=== PATIENT | female | born 1960 | race African-American/Black ===

== ENCOUNTER 2016-07-08 21:13 | Inpatient (IN) | payer BC ==
[~2016-07-08] VITALS: Ht 170.2 cm; Wt 79.0 kg
[~2016-07-08 21:13] MED LIST: AMLO1CAP PO; ASPI81TA50 PO; FLUO10CA13 PO; GLIP10TA13 PO; HYDR12.53 PO; METF500T4 PO; OMEP20TA PO
--- NOTE | 2016-07-08 21:55 | PHYS DOC ---
General Stated Complaint: FLU LIKE SYMPTOMS Time Seen by MD: 21:26 Source: patient, family Problems: History of Present Illness Initial Comments Patient here with for generalized symptoms. Patient says that since earlier this week she's had headache, felt hot and cold, neck pain, nausea, vomiting, and generalized weakness. She said she did see her own doctor on Sunday for this. She says her doctor really didn't give her any information about what they thought was going on. Since that time, she just had persistent symptoms which don't seem to be improving and she came here tonight for recheck. As noted, says she's had some headache as well as some neck discomfort. She says she's felt hot and cold had some chills at home. She's had no runny nose or sore throat. There is no earache. She hasn't occasional nonproductive cough. There's no chest pain or shortness of breath. She had had some some nausea with intermittent vomiting. She did vomit once today without blood or bilious material. She has been able tolerate some by mouth fluids since that time. She has no abdominal pain. There is no change amount or bladder habits. There is no vaginal discharge or bleeding. She throat feels generalized weak this but denies any acute focal extremity or neurologic complaints. Patient's taken [id number] cold medicine for this home without help. She thought she was feeling better yesterday but then worse again today. She says her at home has had a cough as well. There is no other increasing or decreasing factors and there is nothing else done for this prior to arrival in the ED. Patient's past nuchal history is remarkable for mild bilateral mastectomy for left breast cancer. She apparently is on an experimental protocol with a Cytoxan infusion in April and periodic "vaccines , the last one which was several weeks ago. She also has high blood pressure diabetes. She doesn't check her sugar regularly. She says the last time she checked it she thinks it was in the 200s. She is a nonsmoker and nonuser of ethanol. She did use some Compazine and Zofran that she had at home for nausea, is not feeling nauseated physician evaluation. Allergies: Coded Allergies: Metronidazole HCl (Verified Allergy, Unknown, 03/12/13) exenatide (Verified Allergy, Unknown, 03/12/13) metronidazole (Verified Allergy, Unknown, 03/12/13) Past Medical History Medical History: cancer, diabetes, hypertension Surgical History: other Social History Smoker: non-smoker Alcohol: none Review of Systems All Other Systems: Reviewed and Negative Physical Exam General Appearance: WD/WN, no apparent distress Eyes: bilateral eye EOMI, bilateral eye PERRL, bilateral eye normal inspection Ear, Nose, Throat: normal ENT inspection, normal pharynx Neck: full range of motion, supple, normal inspection Respiratory: lungs clear, normal breath sounds, no respiratory distress Cardiovascular: regular rate, rhythm, no edema Gastrointestinal: non tender, soft, no organomegaly Back: no CVA tenderness, no vertebral tenderness Extremities: non-tender, normal inspection, no pedal edema Neurologic/Psychiatric: no motor/sensory deficits, alert, normal mood/affect, oriented x 3 Skin: normal color Lymphatic: no adenopathy Comments Generally this a well-developed well-nourished black female in no acute distress. Vitals are as noted. Pertinent findings on physical exam shows ears and throat to be grossly clear. Neck is supple without adenopathy or JVD. There' s no meningeal signs. I'm able passively move the head in all directions without difficulty. Chest is clear to auscultation bilaterally. Cardiac vascular exam shows regular rate and rhythm with out murmur. The abdomen is soft and nontender without masses or megaly. Is no perineal findings. Back shows no CVA tenderness. Externally show no rashes, cyanosis, or edema. Neurologic exam finds patient awake alert oriented and cooperative. She moves all extremity as well as spontaneously with good tone. Remainder of physical exam is clinically unremarkable. Orders, Labs, Meds Old charts note no prior ER visits within the current system. Labs show a stable CBC. There is no evidence of urine infection. She has evidence of renal insufficiency with a creatinine of 2.5 and abuse of 43. There is no old values for comparison. She has elevated liver function tests and an elevated bilirubin at 5. She has elevated amylase and lipase of 1300. Abdominal series films show uterine fibroid. There is no other acute changes per the emergency physician. Chest x-ray shows no acute changes per the emergency physician as well. 2330 Patient resting comfortable in the ED. Discussed with the patient and her the uncertain cause her symptoms. Influenza is negative, there does not appear to be any signs of urinary infection, and chest x-ray is clear. I'm concerned that given her elevated LFTs and elevated pancreas enzymes with elevated bilirubin without particular pain that we might be dealing with some sort of recurrent mass in the biliary tree or pancreatic region. She does have a history of cancer as previously described. I discussed these findings with the patient. She has no previous history of renal issues or pancreas issues. She does say that at one time she was told her liver function tests were elevated but doesn't know the reason for that. I discussed with the patient her that given this constellation of findings, I think will be important bring her to the hospital to see if we can feel not sure what's going on. Perhaps this is just an overwhelming viral issue, or perhaps this is simply related to medication she is receiving with her new protocol, but I'm also concerned about the possibility of some kind of mass lesion in the liver or pancreatic region. She and her do voice understanding of the need for admission and are agreeable to same. Her primary care physician does not admit. I discussed the case with Dr. Wellington of the hospitalist service to facilitate admission. He graciously agrees to accept the patient. I written initial holding orders to include medicines for pain, nausea, Tylenol for fever, as well as a CT abdomen and pelvis tonight and IV fluids. She is resting comfortably at this time awaiting transfer to the floor and hospitalist care. MAREK OCHOA MD Jul 08, 2016 21:55
[2016-07-08 22:56] LABS: BASO % 0 % (0-3); EOS % 0 % (0-3); HEMATOCRIT 33.8 % (36.0-47.0); HEMOGLOBIN 11.2 g/dL (12.0-15.5); LYMPH # 0.5 x10^3/uL (1.0-4.8); LYMPH % 7 % (24-48); MEAN CORPUSCULAR HEMOGLOBIN 29 pg (25-35); MEAN CORPUSCULAR HGB CONC 33 g/dL (31-37); MEAN CORPUSCULAR VOLUME 87 fL (79-100); MONO # 0.4 x10^3/uL (0.0-1.1); MONO % 6 % (0-9); NEUT # 6.1 x10^3uL (1.8-7.7); NEUT % 86 % (31-73); PLATELET COUNT 196 x10^3/uL (140-400); RED BLOOD COUNT 3.89 x10^6/uL (3.50-5.40); RED CELL DISTRIBUTION WIDTH 14.5 % (11.5-14.5)
[2016-07-08] MEDS ORDERED: IV NORMAL SALINE 1,000ML 1,000 ML IV ONE (23:00)
[2016-07-08 23:06] LABS: BILIRUBIN,URINE MOD (NEG); CLARITY,URINE CLEAR; COLOR,URINE AMBER; GLUCOSE,URINE >=1000 mg/dL (NEG)
[2016-07-08 23:07] LABS: AMORPHOUS SEDIMENT,UR PRESENT /HPF; BACTERIA,URINE FEW /HPF (0-FEW); NITRITE,URINE NEG (NEG); RBC,URINE OCC /HPF (0-2); SQUAMOUS EPITHELIAL CELL,UR OCC /LPF; UROBILINOGEN,URINE 4 mg/dL (0.2 mg/dL)
[2016-07-08 23:09] LABS: ALBUMIN 2.9 g/dL (3.4-5.0); ALBUMIN/GLOBULIN RATIO 0.6 (1.0-1.7); CALCIUM 9.4 mg/dL (8.5-10.1); CREATININE 2.5 mg/dL (0.6-1.0); GFR 24.1; POTASSIUM 4.5 mmol/L (3.5-5.1); TOTAL PROTEIN 7.6 g/dL (6.4-8.2)
[2016-07-08 23:19] LABS: INFLUENZA A PATIENT NEGATIVE (NEGATIVE); INFLUENZA B PATIENT NEGATIVE (NEGATIVE)
--- NOTE | 2016-07-09 00:36 | RAD ---
CT abdomen and pelvis without contrast Indication: Abdominal pain and weakness with nausea and vomiting. Axial imaging through the abdomen pelvis was performed without contrast. PQRS STATEMENT One or more of the following individualized dose reduction techniques were utilized for this study: 1.Automated exposure control. 2.Adjustment of the mA and/orkVaccording to patient size. 3.Use of iterative reconstruction technique. No prior studies are available for comparison. There is some minimal infiltrate or atelectasis in the right middle lobe and left lower lobe. The liver is unremarkable. The gallbladder appears to be contracted. Pancreatic evaluation is limited without intravenous contrast. No definite peripancreatic fluid collection is seen. No adrenal mass is identified. No renal calculi or hydronephrosis is identified. Aorta is not aneurysmal. The small and large bowel loops are normal caliber. The appendix appears unremarkable. There is a large calcified fibroid in the uterus. The bladder is unremarkable. Impression: No gross abnormality is identified on this noncontrast exam. Electronically signed by: Jorge Ridley MD (Jul 09, 2016 00:35:54)
[2016-07-09] MEDS ORDERED: ACETAMINOPHEN 500 MG TABLET PO PRN (01:15)
[2016-07-09] MEDS ORDERED: ONDANSETRON PF 4 MG/2 ML VIAL. IV PRN (01:15)
[2016-07-09] MEDS ORDERED: FENTANYL PF 100 MCG/2 ML VIAL. IV PRN (01:15)
[2016-07-09 01:28] VITALS: BP 103/64
[2016-07-09] MEDS ORDERED: DEXTROSE 50% 25 GM / 50ML DISP.SYRIN. IV PRN (01:30)
[2016-07-09] MEDS: IV NORMAL SALINE 1,000ML 1,000 ML IV SCH ×3 (01:59→19:20)
[2016-07-09] MEDS ORDERED: MULT-208 PO (02:32)
[2016-07-09] MEDS ORDERED: OMEP40CA5 PO (02:32)
[2016-07-09] MEDS ORDERED: AMLO1CAP6 PO (02:32)
[2016-07-09] MEDS ORDERED: SITA100T PO (02:32)
[2016-07-09 06:27] VITALS: BP 101/58
[2016-07-09 06:51] LABS: BASO % 0 % (0-3); EOS % 0 % (0-3); HEMATOCRIT 32.2 % (36.0-47.0); HEMOGLOBIN 10.7 g/dL (12.0-15.5); LYMPH # 0.5 x10^3/uL (1.0-4.8); LYMPH % 8 % (24-48); MEAN CORPUSCULAR HEMOGLOBIN 29 pg (25-35); MEAN CORPUSCULAR HGB CONC 33 g/dL (31-37); MEAN CORPUSCULAR VOLUME 87 fL (79-100); MONO # 0.4 x10^3/uL (0.0-1.1); MONO % 7 % (0-9); NEUT # 5.4 x10^3uL (1.8-7.7); NEUT % 85 % (31-73); PLATELET COUNT 173 x10^3/uL (140-400); RED BLOOD COUNT 3.69 x10^6/uL (3.50-5.40); RED CELL DISTRIBUTION WIDTH 14.6 % (11.5-14.5); WHITE BLOOD COUNT 6.4 x10^3/uL (4.0-11.0)
[2016-07-09 07:08] LABS: ALBUMIN 2.5 g/dL (3.4-5.0); ALBUMIN/GLOBULIN RATIO 0.6 (1.0-1.7); CALCIUM 8.8 mg/dL (8.5-10.1); GFR 37.6; MAGNESIUM 2.7 mg/dL (1.8-2.4); TOTAL BILIRUBIN 5.6 mg/dL (0.2-1.0); TOTAL PROTEIN 6.6 g/dL (6.4-8.2)
[2016-07-09 07:09] LABS: CREATININE 1.7 mg/dL (0.6-1.0); POTASSIUM 4.6 mmol/L (3.5-5.1)
[2016-07-09] MEDS: INSULIN ASPART 300 UNITS/3 ML INSULN.PEN SQ SCH ×4 (07:30→21:00)
--- NOTE | 2016-07-09 08:43 | RAD ---
ACUTE ABDOMEN SERIES Clinical Indication: Cough, chest and abdomen pain Comparison: None. Technique: Frontal view the chest and upright and supine frontal views of the abdomen are obtained. Findings: No focal consolidation, pleural effusion or pneumothorax is seen. Cardiomediastinal silhouette is within normal limits of size. No intra-abdominal free air or air-fluid levels are seen on the upright view. No dilated bowel loops are seen to suggest obstruction. No definite renal calculi are seen. A 3.7 cm calcified lesion is present within the left hemipelvis near the midline, likely a calcified uterine fibroid. Visualized osseous structures and overlying soft tissues of the chest and abdomen demonstrate no acute finding. Artifacts consistent with overlying breast tissue expanders present over both midlungs. IMPRESSION: No focal consolidation. Nonobstructive appearing bowel gas pattern.
[2016-07-09] MEDS ORDERED: HYDROCHLOROTHIAZIDE 12.5 MG CAPSULE PO PRN (09:00)
[2016-07-09] MEDS ORDERED: METFORMIN 500 MG TABLET. PO SCH (09:30)
[2016-07-09] MEDS ORDERED: GLIPIZIDE 10 MG TABLET PO SCH (09:30)
[2016-07-09] MEDS: ASPIRIN ENTERIC COATED 81 MG TABLET.DR. PO SCH (10:05)
[2016-07-09 11:15] VITALS: BP 109/67
[2016-07-09 13:40] LABS: CALCIUM 8.8 mg/dL (8.5-10.1); CREATININE 1.4 mg/dL (0.6-1.0); GFR 47.1; POTASSIUM 4.6 mmol/L (3.5-5.1)
[2016-07-09 15:59] VITALS: BP 98/57
[2016-07-09 19:45] VITALS: BP 134/75
[2016-07-09 22:43] VITALS: BP 111/68
--- NOTE | 2016-07-09 23:01 | PN ---
DATE: 07/09/2016 SUBJECTIVE: The patient is a 55-year-old -Niue[place] female patient who was admitted yesterday with generalized aches and pains, nausea, vomiting and generally feeling unwell. She was extensively evaluated in the Emergency Room, was found to have acute renal failure. Her creatinine has risen from 0.7 to 2.5, BUN from 15 to 43. Liver enzymes also have dramatically risen. She has what seemed to be almost cholestatic jaundice. She has also acute pancreatitis with markedly elevated amylase and lipase. She was started on IV fluid, pain medication and as she has no pain, she was started on a clear liquid diet; however, her appetite is poor. When I saw her this afternoon, she continued to complain of aches and pains as well as poor appetite, although she has no nausea, no vomiting, no fever, chills or rigors. PHYSICAL EXAMINATION: GENERAL: When I examined her, she looked well and was clearly in no apparent respiratory distress, pale, but no jaundice, cyanosis or thyromegaly. No jugular venous distention. No limb edema. VITAL SIGNS: Her heart rate was 97, blood pressure was 109/67, temperature was 97.8, respiratory rate was 20 and oxygen saturation was 97%. HEAD, EYES, EARS, NOSE AND THROAT: Showed normocephalic, atraumatic. NECK: Supple. HEART: Showed normal first and second heart sounds with no gallop, rub or murmur. CHEST: Clear to auscultation. No crepitation or rhonchi. ABDOMEN: Distended, soft, nontender. No guarding or rigidity. No organomegaly. All hernial orifices intact. Bowel sounds normal. NEUROLOGIC: She is awake, alert, responding appropriately. Cranial nerves are intact. She moves extremities without difficulty. She is mostly bed bound. Her intake over the last 24 hours was 560, output was 400. LABORATORY DATA: This morning showed a serum sodium 134, potassium 4.6, chloride 101, bicarbonate 19, anion gap of 14, glucose was 34, creatinine is 1.7. Estimated GFR was 37 mL per minute. Her glucose was 184, calcium was 8.8 and magnesium was 2.7. Total bilirubin is up to 5.6; however, AST is down to 180, ALT down to 171, alkaline phosphatase slightly down to 160. Total protein was 6.6, albumin was 2.5. Unfortunately, her amylase and lipase were not done. ASSESSMENT: This is a 55-year-old -[place]ue[place] female patient who was diagnosed with the breast cancer for which she underwent bilateral mastectomy. She is now on an experimental study. She received Cytoxan on 05/15/2016. A week later, she received the experimental vaccine and a week ago, she received second dose of experimental vaccine and she came yesterday, was found to have acute renal failure, acute pancreatitis and acute hepatitis with cholestatic picture. She obviously is known to have diabetes and hypertension. Unfortunately, she has been taking Tylenol as well as ibuprofen. On her home medication, she is on NEDRA inhibitor as well as hydrochlorothiazide and metformin. PLAN: My plan is to discontinue her hydrochlorothiazide, discontinue metformin as well as her sitagliptin and glipizide, continue with the insulin sliding scale for now. I will repeat her lab stat BMP and amylase and lipase, repeat all her labs tomorrow. We need obviously to contact her clinical ____ to discuss this finding. Fortunately, her kidney functions are turning the corner. Her creatinine is down from 2.5 to 1.7. Her liver enzymes are all trending down, although slowly. MOHINI HOGAN MD DR: RILEY/andre JOB#: [id number] / [id number]
[2016-07-10] MEDS: IV NORMAL SALINE 1,000ML 1,000 ML IV SCH ×3 (01:30→10:37)
--- NOTE | 2016-07-10 04:30 | HP ---
ADMIT DATE: 07/09/2016 HISTORY OF PRESENT ILLNESS: This is a 55-year-old -Israeli female patient, who came to the Emergency Room with generalized symptoms. Apparently, she was diagnosed with left breast cancer for which she underwent bilateral mastectomy. She was started on a clinical study, for which she received Cytoxan on 05/15/2016. She had also first cycle of the experimental vaccine a week later, probably around 05/22/2016 and she received her second cycle about a week ago and since then she has not felt well. She could not go to work on last Sunday as she was weak, tired, generalized arthralgias, and nausea and vomiting. She saw a nurse practitioner of her [facility] primary care physician on Sunday, apparently did not do anything. She saw her surgeon, who did the mastectomy on Sunday; however, no lab work done and she did have lab work done at [facility] a week ago, but she do not have a copy of that. However, we have copies of her lab works done on 05/15/2016 and at that time her kidney function was definitely normal. In fact, her BUN was 15, creatinine 0.7. She was evaluated in the Emergency Room and her lab work showed that her CBC was within normal range, although she is slightly anemic. However, her chemistry showed sodium was low at 130, potassium 4.5, chloride 95, bicarbonate 23, anion gap of 12, BUN is 43, creatinine 2.5, estimated GFR was 24 mL per minute. Her glucose was high at 273, calcium was 9.4. Her total bilirubin was high at 5. AST, ALT and alkaline phosphatase were extremely high. Her total protein was 7.6, albumin was 2.9. Her amylase was high at 209 and lipase was extremely high at 1300. Her urinalysis was unremarkable. Toxic screen was negative. Her influenza A and B were negative as well as rapid streptococcal antigen. She was admitted and was continued on IV fluid as well as insulin sliding scale. PAST MEDICAL HISTORY: Significant for type 2 diabetes mellitus, hypertension and breast cancer. PAST SURGICAL HISTORY: Significant for bilateral mastectomy, Port-A-Cath removal, 3 C-sections, tubal ligation and hospitalizations. ALLERGIES: She is allergic to BYETTA, VICTOZA, ERYTHROMYCIN, FLAGYL, and VICODIN. MEDICATIONS: She is currently on the following medications: She is on amlodipine/benazepril 5/20 mg once a day, aspirin 81 mg once a day, glipizide 10 mg once a day, hydrochlorothiazide 12.5 mg once a day, metformin 1000 mg twice a day, multivitamin 1 tablet once a day, omeprazole 40 mg once a day and sitagliptin phosphate 100 mg once a day. FAMILY HISTORY: She has 1 living brother, who is older and has hypertension. Two sisters, still alive, one of them has gout. Two brothers are . The oldest brother of an overdose and the other one of gastric cancer. Her father at age of 55 because of lung cancer and mother at the age of 52 because of diabetes and its complications. SOCIAL HISTORY: She is , has 2 sons and 1 daughter. She never smoked, does not drink alcohol and she currently works as an RN at the [employer]. REVIEW OF SYSTEMS: The patient denied any blurring of vision, cataract, glaucoma or macular degeneration. Denied any earache, tinnitus or sensorineural deafness. Denied any nosebleeds, stuffy nose or postnasal drip. Denied any sore throat, sore tongue, toothache, hoarseness of voice or difficulty swallowing. She does have anorexia, nausea, and vomiting. She had also diarrhea, but no constipation. Denied any hematemesis, melena or hematochezia. Denied any dysuria, frequency or hematuria. Denied any chest pain, shortness of breath, orthopnea or nocturnal dyspnea. She has cough, which is mostly dry. Denied any chills, rigors, or fever. Denied any dizziness, lightheadedness, or vertigo, but did complain of generalized aches and pains. PHYSICAL EXAMINATION: GENERAL: On arrival to the Emergency Room, she looked well and was clearly in no apparent respiratory distress, slightly pale, but no jaundice, cyanosis, or thyromegaly. No jugular distension, no limb edema. VITAL SIGNS: Her heart rate was 102, blood pressure was 103/64, temperature was 99.2, respiratory rate was 22 and oxygen saturation was 97%. HEAD, EYES, EARS, NOSE, AND THROAT: Showed normocephalic, atraumatic. NECK: Supple. HEART: Showed normal first and second heart sounds with no gallop, rub or murmur. CHEST: Clear to auscultation. No crepitation or rhonchi. ABDOMEN: Distended, soft, and nontender. No guarding or rigidity. No organomegaly. All hernial orifices are intact. Bowel sounds are normal. NEUROLOGIC: She was awake, alert, responding appropriately. All her cranial nerves are intact. She moves extremities without difficulty, although she said that the pain in her knee joint is worse than usual. She was able to walk before and work, but now over the last few days she is unable even to walk because of pain in her knee joint. LABORATORY DATA: On arrival to the Emergency Room, she has had lab work done, which include a white cell count of 7000, hemoglobin 11.2, hematocrit 33.8, MCV 87 and platelet count of 196,000 with a manual differential showed 86% polymorphs, 7% lymphocytes and 6% monocytes. Her chemistry showed a serum sodium 130, potassium 4.5, chloride 95, bicarbonate 23, anion gap of 12, BUN 43, creatinine 2.5, estimated GFR was 24 mL per minute. Her glucose was 273, calcium was 9.4. Total bilirubin was 5, AST was 216, ALT was 189 and alkaline phosphatase was 735, total protein was 7.6, albumin was 2.9. Amylase and lipase were elevated at 209 and 1308 respectively. Urinalysis was vladislav, clear with a pH of 5, specific gravity 1.005. There was 30 mg/dL of protein in the urine, large amount of glucose, negative for ketones, trace of blood, negative for nitrite, moderate amount of bilirubin, negative for leukocyte esterase with occasional RBCs, 1-4 WBCs, very very few bacteria. Her urine toxicology screen was negative for acetones. Her influenza A and B were negative. Group A Streptococcus rapid negative. She has had an acute abdomen series, which basically showed no focal consolidation, nonobstructive appearing bowel gas pattern. She did have a CT scan of the abdomen and pelvis without contrast, which showed that there is some minimal infiltrate/atelectasis in the right middle lobe and left lower lobe of the liver is unremarkable. The gallbladder appears to be contracted. Pancreatic evaluation is limited without intravenous contrast, no definite peripancreatic fluid collection is seen. No adrenal mass is identified. No renal calculi with hydronephrosis identified. The aorta is not aneurysmal. The small and large bowel loops are of normal caliber. The appendix appears unremarkable. There is a large calcified fibroid in the uterus. The bladder is unremarkable. IMPRESSION: No gross abnormality identified in this noncontrasted examination. Unfortunately, I was under the impression that the patient was when I discussed with the ER physician that she is going to [facility], so I was not aware that she is taking all these medications that should have been discontinued. PLAN: My plan is to discontinue her metformin, glipizide, and hydrochlorothiazide. We will keep only the amlodipine to control her blood pressure. We will use insulin sliding scale to control her blood sugar. Continue the IV fluids. MOHINI HOGAN MD DR: RILEY/andre JOB#: [id number] / [id number]
[2016-07-10 05:20] VITALS: BP 116/70
[2016-07-10 06:26] LABS: HEMATOCRIT 29.3 % (36.0-47.0); HEMOGLOBIN 9.9 g/dL (12.0-15.5); RED BLOOD COUNT 3.39 x10^6/uL (3.50-5.40); RED CELL DISTRIBUTION WIDTH 14.4 % (11.5-14.5); WHITE BLOOD COUNT 6.3 x10^3/uL (4.0-11.0)
[2016-07-10 06:45] LABS: ALBUMIN 2.3 g/dL (3.4-5.0); CALCIUM 8.7 mg/dL (8.5-10.1); GFR 89.8
[2016-07-10 07:07] LABS: ALBUMIN/GLOBULIN RATIO 0.6 (1.0-1.7); CREATININE 0.8 mg/dL (0.6-1.0); POTASSIUM 4.4 mmol/L (3.5-5.1); TOTAL PROTEIN 6.3 g/dL (6.4-8.2)
[2016-07-10] MEDS: INSULIN ASPART 300 UNITS/3 ML INSULN.PEN SQ SCH ×2 (07:27→11:30)
[2016-07-10] MEDS: ASPIRIN ENTERIC COATED 81 MG TABLET.DR. PO SCH (08:33)
[2016-07-10 11:32] VITALS: BP 105/66
--- NOTE | 2016-07-10 16:11 | DS ---
DATE OF DISCHARGE: 07/10/2016 DISCHARGE DIAGNOSES: 1. Acute renal failure, resolved. 2. Hyponatremia, improving. 3. Metabolic acidosis. 4. Breast cancer, status post chemotherapy, 2 doses of an experimental vaccine, last approximately one week ago. 5. Pancreatitis, questionable etiology. 6. Low-grade fever. 7. Acute hepatitis with cholecystatic picture. 8. Normochromic normocytic anemia. 9. Type 2 diabetes. 10. Hypertension. HOSPITAL COURSE: This is a 55-year-old -[place] female presented to the Emergency Room at [facility] in [place], [place] with generalized symptoms of aches, pains, nausea and vomiting. She had had normal labs done on 05/15/2016 but labs in the Emergency Room were grocery abnormal with amylase of 1308 and markedly elevated bilirubin of 5, AST 216 and ALT 189. Alkaline phosphatase was 735. There was very little improvement in these values except for lipase did come down to 828, but this morning, her bilirubin was in 9 with elevations of the liver enzyme as well. Her flu and her group A strep were negative. She was on clear liquids throughout. She received IV fluids and treatment of her hyperglycemia. Abdomen and pelvis CT showed possible minimal infiltrate in the right middle lobe and left lower lobe but the patient really has no symptoms to that effect. Abdominal ultrasound at the time of transfer the result is pending. PHYSICAL EXAMINATION: VITAL SIGNS: On day of discharge, blood pressure was 105/66, pulse 90, respirations 20 and O2 sat 97% on room air. Yesterday evening, she had a temperature of 100.7, this morning 98.5. GENERAL: The patient is icteric. Eye grounds are yellow. Nose is patent. Her throat was clear. NECK: Supple. LUNGS: Clear. CARDIOVASCULAR: Regular rhythm and rate. ABDOMEN: Soft, bowel sounds are positive. No gross tenderness throughout. No masses palpated. EXTREMITIES: Without edema. LABORATORY DATA: For 07/10/2016, sodium 132, CO2 of 18, total bilirubin was 9, AST 248, ALT 195, alkaline phosphatase 741, albumin 2.3 and lipase 828. DISPOSITION: Transfer to [place] for higher level of care, accepting physician Dr. Jules. HEATHER CORTEZ DO DR: RHONA/andre JOB#: [id number] / [id number] Kinza Pond MD, Muzaffar MD SABIH, LOUAY MD
[2016-07-10 16:18] VITALS: BP 112/68
--- NOTE | 2016-07-10 16:30 | RAD ---
Abdominal ultrasound, 07/10/2016: History: Abnormal liver function test The gallbladder is not well distended. No gallstones are seen. The gallbladder dunn are not thickened. No bile duct dilatation is evident. The liver appears to be at the upper limits of normal in size. There is no evidence of a hepatic mass. The visualized portions of the pancreas, spleen and both kidneys are unremarkable. The abdominal aorta is of normal caliber. The inferior vena cava shows no abnormality. No free fluid is evident in the abdomen. IMPRESSION: No acute abdominal abnormality is detected.
== END 2016-07-10 16:00 | disposition short-term general hospital (02) | DRG 441 ==
LOC: ER 21:13 → 1 SOUTH 23:30
PROVIDERS: ADMIT Internal Medicine; ATTEND Internal Medicine
DX: B17.9 Acute viral hepatitis, unspecified (principal); K85.90 Acute pancreatitis without necrosis or infection, unspecified; N17.9 Acute kidney failure, unspecified; E87.1 Hypo-osmolality and hyponatremia; E87.2 Acidosis; E11.65 Type 2 diabetes mellitus with hyperglycemia; D64.9 Anemia, unspecified; I10 Essential (primary) hypertension; Z85.3 Personal history of malignant neoplasm of breast; Z80.0 Family history of malignant neoplasm of digestive organs; Z80.1 Family history of malignant neoplasm of trachea, bronchus and lung; Z82.49 Family history of ischemic heart disease and other diseases of the circulatory system; Z90.13 Acquired absence of bilateral breasts and nipples; Z83.3 Family history of diabetes mellitus; Z92.21 Personal history of antineoplastic chemotherapy; Z88.8 Allergy status to other drugs, medicaments and biological substances; Z88.1 Allergy status to other antibiotic agents; Z88.5 Allergy status to narcotic agent; Z98.51 Tubal ligation status
CPT/HCPCS: 36415; 74022; 74176; 76700; 80048; 80053; 81001; 82010; 82150; 82947; 83690; 83735; 85027; 87070; 87804; 87880; J1815; J3010; 99285-25; J7030